=== PATIENT | male | born 1970 | race Caucasian/White ===

== ENCOUNTER 2017-06-16 14:51 | Observation (INO) | payer OTHER ==
[2017-06-16] MEDS ORDERED: NS 0.9% 1000 ML* 2,000 ML IV ONE (16:17)
[2017-06-16] MEDS ORDERED: LORazepam INJ* 2 MG/ML 1 ML VIAL IV PUSH ONE ×2 (16:17→23:48)
[2017-06-16 16:27] LABS: ABS Basophils 0 10^3/ul (0-0.2); ABS Eosinophils 0 10^3/ul (0-0.6); ABS Lymphocytes 1.2 10^3/ul (1.0-4.8); ABS Monocytes 0.4 10^3/ul (0-0.8); ABS Neutrophils 2.4 10^3/ul (1.5-7.7); ABS Nucleated RBC 0 10^3/ul; Eosinophil % 0 % (0-6); Hematocrit 46 % (42-52); Hemoglobin 16.2 g/dl (14.0-18.0); Lymphocyte % 30.7 % (25-47); Mean Corpuscular HGB Conc 35 g/dl (31-36); Mean Corpuscular Hemoglobin 34 pg (27-31); Mean Corpuscular Volume 97 fL (80-94); Mean Platelet Volume 8 um3 (7.4-10.4); Nucleated Red Blood Cells % 0.2; Platelet Count 212 10^3/ul (150-450); Red Blood Count 4.72 10^6/ul (4.0-5.4); Red Cell Distribution Width 14 % (10.5-15); White Blood Count 4.1 10^3/ul (3.5-10.8)
[2017-06-16 16:50] LABS: EGFR Non-African American 94.9 (>60)
[2017-06-16] MEDS ORDERED: Thiamine IV* 100 MG, Folic Acid IV* 1 MG, Multiple Vitamin IV ADULT* 10 ML in NS 0.9% 1... IV ONE (17:21)
[2017-06-16 17:39] LABS: Urine Appearance Clear; Urine Blood 1+ (Negative); Urine Color Yellow; Urine Ketones 2+ (Negative); Urine Protein 2+(100 mg/dL) (Negative); Urine Specific Gravity 1.018 (1.010-1.030); Urine Urobilinogen Negative (Negative)
--- NOTE | 2017-06-16 21:51 | ED ---
Jr Martinez Jennifer, scribed for Femi Harp MD on 06/16/17 at 1703 . Psychiatric Complaint - HPI Summary HPI Summary: The patient is a 46 year old male whose brought him to the ED today after he had one liter of vodka. The patient has been drinking two liters of vodka every day for the past seven years. He had a period of detox that lasted one month in April. He describes that he cant get through the day anymore. He also adds that he uses marijuana, and that if he smokes that day then he will drink less. - History Of Current Complaint Chief Complaint: [facility] Time Seen by Provider: 06/16/17 16:11 Hx Obtained From: Patient Onset/Duration: Lasting Weeks - He has been drinking two liters of vodka everyday for the past seven years, but today his took him to the ED., Still Present Timing: Constant Severity Initially: Moderate Severity Currently: Moderate Aggravating Factor(s): Nothing Alleviating Factor(s): Nothing Has Suicidal: Denies: Thoughts Ingestion History: Type/Name Of Drug - Vodka, Amount Ingested - 2 L per day - Allergies/Home Medications Allergies/Adverse Reactions: Allergies Allergy/AdvReac Type Severity Reaction Status Date / Time No Known Allergies Allergy Verified 06/16/17 15:53 PMH/Surg Hx/FS Hx/Imm Hx Endocrine/Hematology History: Denies: Hx Diabetes Cardiovascular History: Reports: Hx Hypertension - FOR THE LAST FEW WEEKS Infectious Disease History: No Infectious Disease History: Denies: Traveled Outside the [place] in Last 30 Days - Family History Known Family History: Positive: Diabetes - Social History Alcohol Use: Daily Alcohol Amount: 2 liters of Vodka daily Substance Use Type: Reports: Marijuana Smoking Status (MU): Light Every Day Tobacco Smoker Review of Systems Negative: Fever Negative: Abdominal Pain All Other Systems Reviewed And Are Negative: Yes Physical Exam - Summary Physical Exam Summary: Appearance: The patient is intoxicated. Skin: The skin is warm and dry and skin color reflects adequate perfusion. HEENT: ~The head is normocephalic and atraumatic. The pupils are equal and reactive. The conjunctivae are clear and without drainage. ~Nares are patent and without drainage. ~Mouth reveals moist mucous membranes and the throat is without erythema and exudate. ~The external ears are intact. The ear canals are patent and without drainage. The tympanic membranes are intact. Neck: the neck is supple with full range of motion and non-tender. There are no carotid bruits. ~There is no neck vein distension. Respiratory: Chest is non-tender. ~Lungs are clear to auscultation and breath sounds are symmetrical and equal. Cardiovascular: Heart is tachycardic and regular rhythm. ~There is no murmur or rub auscultated. ~~There is no peripheral edema and pulses are symmetrical and equal. Abdomen: The abdomen is soft and non-tender. ~There are normal bowel sounds heard in all four quadrants and there is no organomegaly palpated. Musculoskeletal: There is no back tenderness noted. ~Extremities are non-tender with full range of motion. ~There is good capillary refill. ~There is no peripheral edema or calf tenderness elicited. Neurological: Patient is alert and oriented to person, place and time. ~The patient has symmetrical motor strength in all four extremities. ~Cranial nerves are grossly intact. Deep tendon reflexes are symmetrical and equal in all four extremities. Psychiatric: The patient has an appropriate affect and does not exhibit any anxiety or depression. Triage Information Reviewed: Yes Vital Signs On Initial Exam: Initial Vitals Temp Pulse Resp BP Pulse Ox 98.3 F 132 18 177/112 96 06/16/17 15:02 06/16/17 15:02 06/16/17 15:02 06/16/17 15:02 06/16/17 15:02 Vital Signs Reviewed: Yes Diagnostics - Vital Signs Vital Signs Temp Pulse Resp BP Pulse Ox 06/16/17 16:30 150/84 06/16/17 16:22 18 06/16/17 16:08 161/111 06/16/17 16:00 115 95 06/16/17 15:52 128 14 96 06/16/17 15:51 158/108 06/16/17 15:02 98.3 F 132 18 177/112 96 - Laboratory Lab Results: Lab Results 06/16/17 06/16/17 Range/Units 16:12 16:12 WBC 4.1 (3.5-10.8) 10^3/ul RBC 4.72 (4.0-5.4) 10^6/ul Hgb 16.2 (14.0-18.0) g/dl Hct 46 (42-52) % MCV 97 H (80-94) fL MCH 34 H (27-31) pg MCHC 35 (31-36) g/dl RDW 14 (10.5-15) % Plt Count 212 (150-450) 10^3/ul MPV 8 (7.4-10.4) um3 Neut % (Auto) 59.6 (38-83) % Lymph % (Auto) 30.7 (25-47) % [place] % (Auto) 9.1 H (1-9) % Eos % (Auto) 0 (0-6) % Baso % (Auto) 0.6 (0-2) % Absolute Neuts (auto) 2.4 (1.5-7.7) 10^3/ul Absolute Lymphs (auto) 1.2 (1.0-4.8) 10^3/ul Absolute Monos (auto) 0.4 (0-0.8) 10^3/ul Absolute Eos (auto) 0 (0-0.6) 10^3/ul Absolute Basos (auto) 0 (0-0.2) 10^3/ul Absolute Nucleated RBC 0 10^3/ul Nucleated RBC % 0.2 Sodium 138 (133-145) mmol/L Potassium 3.7 (3.5-5.0) mmol/L Chloride 97 L (101-111) mmol/L Carbon Dioxide 17 L (22-32) mmol/L Anion Gap 24 H (2-11) mmol/L BUN 13 (6-24) mg/dL Creatinine 0.87 (0.67-1.17) mg/dL Est GFR ( Amer) 122.0 (>60) Est GFR (Non-Af Amer) 94.9 (>60) BUN/Creatinine Ratio 14.9 (8-20) Glucose 79 (70-100) mg/dL Calcium 9.4 (8.6-10.3) mg/dL Total Bilirubin 0.80 (0.2-1.0) mg/dL AST 57 H (13-39) U/L ALT 59 H (7-52) U/L Alkaline Phosphatase 61 (34-104) U/L Total Protein 7.8 (6.4-8.9) g/dL Albumin 4.4 (3.2-5.2) g/dL Globulin 3.4 (2-4) g/dL Albumin/Globulin Ratio 1.3 (1-3) TSH Pending Salicylates < 2.50 (<30) mg/dL Acetaminophen < 15 mcg/mL Serum Alcohol 361 H (<10) mg/dL Result Diagrams: 06/16/17 16:12 06/16/17 16:12 Lab Statement: Any lab studies that have been ordered have been reviewed, and results considered in the medical decision making process. - EKG 17:02 Cardiac Rate: Tachycardia EKG Rhythm: Sinus Tachycardia - 106 BPM EKG Interpretation: Nonspecific inferior changes Course/Dx - Course Course Of Treatment: Mr. Tenorio presented to the ED intoxicated and admitted to drinking a liter of vodka. Somewhere along the line he expressed some suicidal ideation because of his leaving him although he denied that to me. He was found to have a BA of 361 and we a waiting for him to sober up to be evaluated. - Differential Dx/Clinical Impression Provider Diagnosis: Alcohol intoxication Discharge - Discharge Plan Condition: Stable Disposition: OTHER Discharge Disposition Comment: Patient is signed out to Dr. Hess, pending disposition. Referrals: Igor Eric MD [Primary Care Provider] - The documentation as recorded by the Jr mar Jennifer accurately reflects the service I personally performed and the decisions made by me, Femi Harp MD.
[2017-06-17] MEDS ORDERED: Ondansetron ODT TAB* 4 MG PO ONE (03:31)
[2017-06-17] MEDS ORDERED: Acetaminophen TAB* 325 MG PO PRN (03:34)
[2017-06-17] MEDS ORDERED: LORazepam TAB(*) 1 MG ONE (03:39)
[2017-06-17] MEDS ORDERED: LORazepam TAB(*) 1 MG PO SCH (04:00)
--- NOTE | 2017-06-17 07:29 | ED ---
Amandeep Martinez Angela, scribed for Hung Hess MD on 06/16/17 at 2233 . Progress - Progress Note Progress Note: This pt was signed out by Dr. Harp, pending disposition, awaiting alcohol metabolism and MHE. Pt was medically cleared at 02:00. He is awaiting MHE. Per Dr. Steven, pt is medically cleared and does not need admission for psychiatric reasons. I reevaluated the patient, has persistent tachycardia and tremulousness requiring multiple doses of sedative, admitted for further treatment. Course/Dx - Diagnoses Provider Diagnoses: Alcohol intoxication, Alcohol withdrawal - Provider Notifications Discussed Care Of Patient With: Kishan Aguilar Time Discussed With Above Provider: 07:00 The documentation as recorded by the Amandeep mar Angela accurately reflects the service I personally performed and the decisions made by me, Hung Hess MD.
[2017-06-17] MEDS: chlordiazePOXIDE CAP* 25 MG PO SCH ×4 (07:46→21:06)
[2017-06-17] MEDS ORDERED: Albuterol HFA INHALER* 8 gm MDI INH PRN (07:52)
[2017-06-17] MEDS ORDERED: chlordiazePOXIDE CAP* 25 MG PO PRN (07:55)
--- NOTE | 2017-06-17 08:01 | ADMNOTE ---
Subjective Date of Service: 06/17/17 Interval History: ADMISSION HISTORY AND PHYSICAL EXAM: Allergies Allergy/AdvReac Type Severity Reaction Status Date / Time No Known Allergies Allergy Verified 06/16/17 15:53 Home Medications Medication Instructions Recorded Confirmed Type Albuterol HFA INHALER* [Ventolin 2 puff INH Q6H PRN 10/28/15 06/17/17 History HFA Inhaler*] HPI: The patient has been drinking 2L/day of vodka for over a year and before that 1 L/d for many years. He decided he wanted to go to detox and tapered off his drinking recently. He states the withdrawal is not too bad if he tapers off. He has been in rehab for cocaine. 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 Doesn't smoke when he is drinking. Past Medical History: Unchanged from Admission - Tonsillectomy, asthma Review of Systems - Measurements Intake and Output: Intake and Output Last 24 Hours 06/15/17 06/16/17 06/17/17 06/18/17 06:59 06:59 06:59 06:59 Intake Total 3011 Balance 3011 Weight 220 lb Intake: IV Fluids 3011 - Review of Systems Constitutional Symptoms: Positive: Weight Gain, Weight Loss - Has both weight gain and loss depending on his drinking Dermatology: Positive: Normal HEENT: Positive: Normal Eyes: Positive: Normal Thyroid: Positive: Normal Pulmonary: Positive: Asthma Cardiology: Positive: Normal Gastroenterology: Positive: Other - hx esophagitis, no recent sx's Genital - Urinary: Positive: Normal Musculoskeletal: Negative: Joint Pain, Joint Stiffness, Arthritis, Osteoporosis, Low Back Pain , Sciatica, Joint Deformities, Kyphoscoliosis, Other Endocrinology: Positive: Normal Hematologic/Lymphatic: Negative: Anemia, Easy Brusing, Hx Leukemia, Hx Lymphoma, Use of Anticoagulant, Use of Antiplatelet Drugs, Other Neurology: Positive: Normal Psychiatry: Positive: Normal Allergic/Immunologic: Negative: Hx Anaphylaxis, Hx Angioedema, Hx Environmental, Hx Seasonal, Athsma, Hx HIV, Immunocompromise, Swollen Glands LymphNodes, Other Objective Active Medications: Acetaminophen (Tylenol Tab*) 650 mg PO Q4H PRN PRN Reason: PAIN Albuterol (Ventolin Hfa Inhaler*) 2 puff INH Q6H PRN PRN Reason: WHEEZING Chlordiazepoxide (Librium Cap*) 50 mg PO TID ARSH Last Admin: 06/17/17 07:46 Dose: 50 mg Vital Signs - 8 hr 06/17/17 06/17/17 06/17/17 00:00 00:01 00:30 Temperature Pulse Rate 110 111 91 Respiratory Rate Blood Pressure 164/105 149/77 (mmHg) O2 Sat by Pulse 95 96 94 Oximetry 06/17/17 06/17/17 06/17/17 01:00 01:13 01:30 Temperature Pulse Rate 105 95 Respiratory 18 Rate Blood Pressure 158/90 146/76 (mmHg) O2 Sat by Pulse 95 94 Oximetry 06/17/17 06/17/17 06/17/17 02:00 02:33 03:32 Temperature 98.2 F 98.6 F Pulse Rate 93 106 111 Respiratory 16 16 Rate Blood Pressure 144/83 126/94 148/98 (mmHg) O2 Sat by Pulse 98 98 97 Oximetry 06/17/17 06/17/17 06/17/17 03:36 03:40 06:09 Temperature Pulse Rate Respiratory 16 14 20 Rate Blood Pressure (mmHg) O2 Sat by Pulse Oximetry 06/17/17 06/17/17 06/17/17 06:10 06:12 06:30 Temperature Pulse Rate 102 108 Respiratory Rate Blood Pressure 157/83 167/94 (mmHg) O2 Sat by Pulse 95 96 Oximetry 06/17/17 06/17/17 07:00 07:46 Temperature Pulse Rate 93 Respiratory 15 Rate Blood Pressure 135/68 (mmHg) O2 Sat by Pulse 95 Oximetry Oxygen Devices in Use Now: None Appearance: Alert, supine on ED stretcher. In fair spirits. Looks comfortable. Neck: NL Appearance and Movements; NL JVP, No Thyroid Enlargement, Masses Respiratory: Symmetrical Chest Expansion and Respiratory Effort, Clear to Auscultation, Clear to Percussion Cardiovascular: NL Sounds; No Murmurs; No JVD, RRR, No Edema, - Abdominal: NL Sounds; No Tenderness; No Distention, No Hepatosplenomegaly, - Extremities: No Edema, No Clubbing, Cyanosis, - Skin: No Rash or Ulcers, No Nodules or Sclerosis, - Neurological: Alert and Oriented x 3, NL Sensation Result Diagrams: 06/16/17 16:12 06/16/17 16:12 Additional Lab and Data: Lab Results 06/16/17 06/16/17 Range/Units 16:12 16:12 WBC 4.1 (3.5-10.8) 10^3/ul RBC 4.72 (4.0-5.4) 10^6/ul Hgb 16.2 (14.0-18.0) g/dl Hct 46 (42-52) % MCV 97 H (80-94) fL MCH 34 H (27-31) pg MCHC 35 (31-36) g/dl RDW 14 (10.5-15) % Plt Count 212 (150-450) 10^3/ul MPV 8 (7.4-10.4) um3 Neut % (Auto) 59.6 (38-83) % Lymph % (Auto) 30.7 (25-47) % [place] % (Auto) 9.1 H (1-9) % Eos % (Auto) 0 (0-6) % Baso % (Auto) 0.6 (0-2) % Absolute Neuts (auto) 2.4 (1.5-7.7) 10^3/ul Absolute Lymphs (auto) 1.2 (1.0-4.8) 10^3/ul Absolute Monos (auto) 0.4 (0-0.8) 10^3/ul Absolute Eos (auto) 0 (0-0.6) 10^3/ul Absolute Basos (auto) 0 (0-0.2) 10^3/ul Absolute Nucleated RBC 0 10^3/ul Nucleated RBC % 0.2 Sodium 138 (133-145) mmol/L Potassium 3.7 (3.5-5.0) mmol/L Chloride 97 L (101-111) mmol/L Carbon Dioxide 17 L (22-32) mmol/L Anion Gap 24 H (2-11) mmol/L BUN 13 (6-24) mg/dL Creatinine 0.87 (0.67-1.17) mg/dL Est GFR ( Amer) 122.0 (>60) Est GFR (Non-Af Amer) 94.9 (>60) BUN/Creatinine Ratio 14.9 (8-20) Glucose 79 (70-100) mg/dL Calcium 9.4 (8.6-10.3) mg/dL Total Bilirubin 0.80 (0.2-1.0) mg/dL AST 57 H (13-39) U/L ALT 59 H (7-52) U/L Alkaline Phosphatase 61 (34-104) U/L Total Protein 7.8 (6.4-8.9) g/dL Albumin 4.4 (3.2-5.2) g/dL Globulin 3.4 (2-4) g/dL Albumin/Globulin Ratio 1.3 (1-3) TSH Pending Salicylates < 2.50 (<30) mg/dL Acetaminophen < 15 mcg/mL Serum Alcohol 361 H (<10) mg/dL Assess/Plan/Problems-Billing Assessment: - Patient Problems (1) Alcoholism Current Visit: Yes Status: Acute Code(s): F10.20 - ALCOHOL DEPENDENCE, UNCOMPLICATED SNOMED Code(s): 7959515 Comment: Acute and chronic, with alcoholic liver disease. Chlordiazepoxide scheduled and PRN, SW consult. (2) Asthma Current Visit: Yes Status: Acute Code(s): J45.909 - UNSPECIFIED ASTHMA, UNCOMPLICATED SNOMED Code(s): 611721327 Comment: PRN albuterol. He doesn't use daily. (3) Tobacco abuse Current Visit: Yes Status: Acute Code(s): Z72.0 - TOBACCO USE SNOMED Code( s): 099950444 Comment: Pt advised to quit smoking and avoid second hand smoke.
[2017-06-17] MEDS: Thiamine TAB* 100 MG TAB PO SCH (12:19)
[2017-06-18] MEDS ORDERED: Ibuprofen TAB* 600 MG PO PRN (07:40)
--- NOTE | 2017-06-18 08:18 | PN ---
Subjective Date of Service: 06/18/17 Interval History: Headache improved. He feels ready to go home. 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 Doesn't smoke when he is drinking. Past Medical History: Unchanged from Admission - Tonsillectomy, asthma Objective Active Medications: Albuterol (Ventolin Hfa Inhaler*) 2 puff INH Q6H PRN PRN Reason: WHEEZING Chlordiazepoxide (Librium Cap*) 25 mg PO Q3H PRN PRN Reason: ANXIETY Last Admin: 06/17/17 10:28 Dose: 25 mg Chlordiazepoxide (Librium Cap*) 25 mg PO TID ARSH Ibuprofen (Motrin Tab*) 600 mg PO Q6H PRN PRN Reason: PAIN Thiamine HCl (Vitamin B-1 Tab*) 200 mg PO DAILY ARSH Last Admin: 06/17/17 12:19 Dose: 200 mg Vital Signs - 8 hr 06/18/17 06/18/17 06/18/17 01:58 04:06 07:50 Temperature 98.0 F 97.8 F Pulse Rate 69 63 73 Respiratory 16 16 16 Rate Blood Pressure 149/69 148/94 158/90 (mmHg) O2 Sat by Pulse 97 96 98 Oximetry Oxygen Devices in Use Now: None Appearance: Alert, sitting on the edge of his bed. In good spirits. Looks comfortable. Eyes: No Scleral Icterus Extremities: No Edema, No Clubbing, Cyanosis, - Skin: No Rash or Ulcers, No Nodules or Sclerosis, - Neurological: Alert and Oriented x 3, NL Sensation - No tremor. Result Diagrams: 06/16/17 16:12 06/16/17 16:12 Additional Lab and Data: Lab Results 06/16/17 06/16/17 Range/Units 16:12 16:12 WBC 4.1 (3.5-10.8) 10^3/ul RBC 4.72 (4.0-5.4) 10^6/ul Hgb 16.2 (14.0-18.0) g/dl Hct 46 (42-52) % MCV 97 H (80-94) fL MCH 34 H (27-31) pg MCHC 35 (31-36) g/dl RDW 14 (10.5-15) % Plt Count 212 (150-450) 10^3/ul MPV 8 (7.4-10.4) um3 Neut % (Auto) 59.6 (38-83) % Lymph % (Auto) 30.7 (25-47) % [place] % (Auto) 9.1 H (1-9) % Eos % (Auto) 0 (0-6) % Baso % (Auto) 0.6 (0-2) % Absolute Neuts (auto) 2.4 (1.5-7.7) 10^3/ul Absolute Lymphs (auto) 1.2 (1.0-4.8) 10^3/ul Absolute Monos (auto) 0.4 (0-0.8) 10^3/ul Absolute Eos (auto) 0 (0-0.6) 10^3/ul Absolute Basos (auto) 0 (0-0.2) 10^3/ul Absolute Nucleated RBC 0 10^3/ul Nucleated RBC % 0.2 Sodium 138 (133-145) mmol/L Potassium 3.7 (3.5-5.0) mmol/L Chloride 97 L (101-111) mmol/L Carbon Dioxide 17 L (22-32) mmol/L Anion Gap 24 H (2-11) mmol/L BUN 13 (6-24) mg/dL Creatinine 0.87 (0.67-1.17) mg/dL Est GFR ( Amer) 122.0 (>60) Est GFR (Non-Af Amer) 94.9 (>60) BUN/Creatinine Ratio 14.9 (8-20) Glucose 79 (70-100) mg/dL Calcium 9.4 (8.6-10.3) mg/dL Total Bilirubin 0.80 (0.2-1.0) mg/dL AST 57 H (13-39) U/L ALT 59 H (7-52) U/L Alkaline Phosphatase 61 (34-104) U/L Total Protein 7.8 (6.4-8.9) g/dL Albumin 4.4 (3.2-5.2) g/dL Globulin 3.4 (2-4) g/dL Albumin/Globulin Ratio 1.3 (1-3) TSH Pending Salicylates < 2.50 (<30) mg/dL Acetaminophen < 15 mcg/mL Serum Alcohol 361 H (<10) mg/dL Assess/Plan/Problems-Billing Assessment: - Patient Problems (1) Alcoholism Current Visit: Yes Status: Acute Code(s): F10.20 - ALCOHOL DEPENDENCE, UNCOMPLICATED SNOMED Code(s): 6221239 Comment: Acute and chronic, with alcoholic liver disease. Chlordiazepoxide reduced to 25 mg tid 2/3 9 AM, will get 6 caps to go home. will pick him up about 6 PM. SW note appreciated. (2) Asthma Current Visit: Yes Status: Acute Code(s): J45.909 - UNSPECIFIED ASTHMA, UNCOMPLICATED SNOMED Code(s): 224746515 Comment: PRN albuterol. He doesn't use daily. (3) Tobacco abuse Current Visit: Yes Status: Acute Code(s): Z72.0 - TOBACCO USE SNOMED Code( s): 340263002 Comment: Pt advised to quit smoking and avoid second hand smoke.
--- NOTE | 2017-06-18 08:28 | PN ---
"Progress Note - Progress Note Date of Service: 06/18/17 Note: Confidential Drug Utilization Report Search Terms: tegan mejía, 1970 Search Date: 06/18/2017 08:27:14 AM The Drug Utilization Report below displays all of the controlled substance prescriptions, if any, that your patient has filled in the last twelve months. The information displayed on this report is compiled from pharmacy submissions to the Department, and accurately reflects the information as submitted by the pharmacies. This report was requested by: Kishan Aguilar | Reference #: [id number] There are no results for the search terms that you entered."
[2017-06-18] MEDS: Thiamine TAB* 100 MG TAB PO SCH (09:03)
[2017-06-18] MEDS: chlordiazePOXIDE CAP* 25 MG PO SCH ×2 (09:03→14:04)
--- NOTE | 2017-06-18 10:45 | DS ---
CC: Dr. Igor Eric DISCHARGE SUMMARY: DATE OF ADMISSION: DATE OF DISCHARGE: 06/18/17 HISTORY: This 46-year-old man presented requesting help in stopping his alcoholism. He states he had been drinking 2 L a day of vodka for about a year. He had suddenly tapered off to try to help him stop. He was exhibiting withdrawal symptoms in the emergency room. He was admitted. He was given chlordiazepoxide. He did quite well with this. He was seen by the social science instructor and followup treatment of his alcohol was discussed with him. The patient was given a prescription for 6 capsules of chlordiazepoxide 25 mg to take over a period of 4 days following discharge, it is 2-2-1-1, the last 2 doses have been given at bedtime. FINAL DIAGNOSES: 1. Acute on chronic alcoholism with alcoholic liver disease. 2. Asthma. 3. Tobacco abuse. DISCHARGE MEDICATIONS: 1. Chlordiazepoxide 25 mg tid #6 2. Ibuprofen 600 mg q 6 hr PRN 3. Thiamine 100 mg daily 4. Albuterol MDI 2 puffs q 6 hr PRN [id number]/CPS #: [id number] MTDD
[2017-06-18 16:42] VITALS: BP 145/96
== END 2017-06-18 17:21 | disposition home or self-care (01) ==
LOC: ED 14:51 → INTOOBSV 06-17 07:12 → MED 06-17 07:12
PROVIDERS: ADMIT Internal Medicine; ATTEND Internal Medicine
DX: F10.229 Alcohol dependence with intoxication, unspecified (principal); Y90.8 Blood alcohol level of 240 mg/100 ml or more; J45.909 Unspecified asthma, uncomplicated; Z72.0 Tobacco use
CPT/HCPCS: 36415; 80053; 80307; 80320; 80329; 81003; 81015; 84443; 85025; 93005; 96374; 96375; 99285; 99406; A9270-GY; G0378; G0480; J2060; J3411

== ENCOUNTER 2019-02-15 07:58 | Emergency (ER) | payer OTHER ==
--- NOTE | 2019-02-15 08:08 | ED ---
Laceration/Wound HPI - HPI Summary HPI Summary: Patient is a 48-year-old male who presents emergency department for laceration to right hand that occurred just prior to arrival. States he tripped over his cat and fell onto the counter where a glass coffee mug broke and cut his right hand. Unaware of last tetanus immunization. Patient notes he feels there is still a piece of glass in hand. Touching area makes symptoms worse. Rest makes symptoms better. Symptoms are mild in severity. - History of Current Complaint Stated Complaint: LAC RT HAND PER PT Time Seen by Provider: 02/15/19 08:07 Hx Obtained From: Patient Pain Intensity: 3 - Additional Pertinent History Primary Care Physician: [id number] - Allergy/Home Medications Allergies/Adverse Reactions: Allergies Allergy/AdvReac Type Severity Reaction Status Date / Time No Known Allergies Allergy Verified 02/15/19 08:04 Home Medications: Home Medications Gabapentin 300 mg PO DAILY 02/15/19 [History Confirmed 02/15/19] Naproxen Sodium [Naproxen 220 mg] 1 tab PO BID PRN 02/15/19 [History Confirmed 02/15/19] PMH/Surg Hx/FS Hx/Imm Hx Previously Healthy: Yes Endocrine/Hematology History: Denies: Hx Diabetes Cardiovascular History: Reports: Hx Hypertension - FOR THE LAST FEW WEEKS Musculoskeletal History: Denies: Hx Arthritis, Hx Osteoporosis Sensory History: Reports: Hx Contacts or Glasses Denies: Hx Hearing Aid Opthamlomology History: Reports: Hx Contacts or Glasses Psychiatric History: Denies: Hx Eating Disorder Infectious Disease History: No Infectious Disease History: Denies: Traveled Outside the [place] in Last 30 Days - Family History Known Family History: Positive: Cardiac Disease, Diabetes - Social History Occupation: Unemployed Lives: With Family Alcohol Use: Daily Alcohol Amount: 2 liters of Vodka daily Hx Substance Use: No Substance Use Type: Reports: None Hx Tobacco Use: Yes Smoking Status (MU): Light Every Day Tobacco Smoker Review of Systems Positive: Other - laceration to right hand Positive: Paresthesia All Other Systems Reviewed And Are Negative: Yes Physical Exam Triage Information Reviewed: Yes Vital Signs On Initial Exam: Initial Vitals Temp Pulse Resp BP Pulse Ox 98.6 F 93 18 122/86 99 02/15/19 07:59 02/15/19 07:59 02/15/19 07:59 02/15/19 07:59 02/15/19 07:59 Vital Signs Reviewed: Yes Appearance: Positive: Well-Appearing - Pt. sitting on bed in NAD. present. Skin: Positive: Warm, Dry Head/Face: Positive: Normal Head/Face Inspection Eyes: Positive: Normal, EOMI Neck: Positive: Supple Musculoskeletal: Positive: Other - 2cm linear laceration noted to the palmar aspect of right hand. Full ROM of all digits. Neurological: Positive: Normal, CN Intact II-III Psychiatric: Positive: Affect/Mood Appropriate Procedures - Sedation Patient Received Moderate/Deep Sedation with Procedure: No - Laceration/Wound Repair 1 Location: upper extremity - right hand Description: Linear Anesthesia: Local, 1.0%, [place] Length, Depth and Shape: 2cm linear Betadine Prep?: No - hibiclens Irrigated w/ Saline (ccs): 200 Laceration/Wound Explored: clean Closure: Single Layer Number of Sutures: 5 Layer Closure?: No Sterile Dressing Applied?: Yes Diagnostics - Vital Signs Vital Signs Temp Pulse Resp BP Pulse Ox 02/15/19 07:59 98.6 F 93 18 122/86 99 - Laboratory Lab Statement: Any lab studies that have been ordered have been reviewed, and results considered in the medical decision making process. Laceration Repair Course/Dx - Course Course Of Treatment: Patient with right hand laceration. No signs of tendon injury. Patient notes paresthesias to the third digit. X-ray obtained to rule out foreign body or fracture which is negative per radiology. Laceration was repaired as noted above. Suture removal in 7-10 days. Keep wound clean and dry. To return to the ER for redness, swelling or drainage from wound. Patient understands and agrees with plan. Tetanus updated. - Differential Dx Differental Diagnoses: Laceration, Tendon Laceration - Clinical Impression Provider Diagnoses: Hand laceration Discharge ED - Sign-Out/Discharge Documenting (check all that apply): Patient Departure - Discharge Plan Condition: Improved Disposition: HOME Patient Education Materials: Care For Your Stitches (ED) Referrals: Dell Tay MD [Medical Doctor] - Louis Elias NP [Primary Care Provider] - Additional Instructions: Suture removal in 7 days Keep wound clean and dry Schedule a follow up appointment with orthopedics if tingling/numbness to finger persist Return to ER for redness, swelling, drainage or if concerned - Billing Disposition and Condition Condition: IMPROVED Disposition: Home
[2019-02-15] MEDS ORDERED: Lidocaine 1% MPF ** 5 ML VIAL INJ ONE (08:15)
[2019-02-15] MEDS ORDERED: Tetan/Diph/Pertus SYR(Tdap)* 0.5 ML SYR(BOOSTRIX) use SYR contains LATEX IM ONE (08:15)
[2019-02-15 09:32] VITALS: BP 129/74
== END 2019-02-15 09:30 | disposition home or self-care (01) ==
LOC: ED 07:58
DX: S61.411A Laceration without foreign body of right hand, initial encounter (principal); Z23 Encounter for immunization; W01.110A Fall on same level from slipping, tripping and stumbling with subsequent striking against sharp glass, initial encounter; Y92.009 Unspecified place in unspecified non-institutional (private) residence as the place of occurrence of the external cause; I10 Essential (primary) hypertension; F17.200 Nicotine dependence, unspecified, uncomplicated; Z79.899 Other long term (current) drug therapy
CPT/HCPCS: 12001; 90471; 90715; 99282